=== PATIENT | male | born 1980 | race Caucasian/White ===

== ENCOUNTER 2022-02-01 14:16 | Emergency (ER) | payer OTHER ==
[2022-02-01 15:54] LABS: HEMOGLOBIN 15.1 gm/dl (14.0-17.5); RED BLOOD COUNT 4.81 M/UL (4.20-5.50); WHITE BLOOD COUNT 10.6 K/UL (4.5-11.0)
[2022-02-01 16:16] LABS: BUN/CREATININE RATIO 22 (0-10)
[2022-02-01] MEDS ORDERED: BACTROBAN OINT22 GM EXT (18:51)
[2022-02-01] MEDS ORDERED: CEPHALEXIN500 MG PO (18:51)
[2022-02-01] MEDS ORDERED: BACTRIM DS TAB1 EACH PO (18:51)
== END 2022-02-01 19:00 | disposition home or self-care (01) ==
LOC: ER1 14:16
PROVIDERS: Physician Assistant
DX: L03.011 Cellulitis of right finger (principal); F17.210 Nicotine dependence, cigarettes, uncomplicated; Z88.5 Allergy status to narcotic agent
CPT/HCPCS: 73201; 80048; 80076; 85025; 87040; 96374; 96375; 99284; J2543; J3370